=== PATIENT | female | born 1995 | race Caucasian/White ===

== ENCOUNTER 2016-11-03 13:51 | Emergency (ER) | payer SELFPAY ==
[~2016-11-03] VITALS: Ht 167.6 cm; Wt 73.0 kg
[2016-11-03 13:59] VITALS: BP 132/67
[2016-11-03] MEDS ORDERED: DEXAMETHASONE 4 MG/ML, 5ML ONE (14:17)
[2016-11-03] MEDS ORDERED: DEXAMETHASONE 4 MG/ML, 1ML PO ONE (14:30)
== END 2016-11-03 14:33 | disposition home or self-care (01) ==
LOC: ED 14:31
DX: J02.9 Acute pharyngitis, unspecified (principal)
CPT/HCPCS: 99283

== ENCOUNTER 2017-10-13 19:22 | Emergency (ER) | payer SELFPAY ==
[~2017-10-13] VITALS: Ht 167.6 cm; Wt 71.1 kg
[2017-10-13 19:23] VITALS: BP 115/74
== END 2017-10-13 20:35 | disposition home or self-care (01) ==
LOC: ED 19:40
DX: L01.01 Non-bullous impetigo (principal); L02.416 Cutaneous abscess of left lower limb; L02.415 Cutaneous abscess of right lower limb; L02.414 Cutaneous abscess of left upper limb; L02.413 Cutaneous abscess of right upper limb
CPT/HCPCS: 99283

== ENCOUNTER 2018-05-18 04:44 | Emergency (ER) | payer SELFPAY ==
[~2018-05-18] VITALS: Ht 167.6 cm; Wt 76.7 kg
[2018-05-18] MEDS ORDERED: KETOROLAC 30 MG/1 ML IM ONE (05:30)
[2018-05-18] MEDS ORDERED: DEXAMETHASONE 4 MG/ML, 1ML PO ONE (05:30)
[2018-05-18] MEDS ORDERED: DEXAMETHASONE 4 MG/ML, 1ML ONE (05:36)
[2018-05-18] MEDS ORDERED: KETOROLAC 30 MG/1 ML ONE (05:36)
--- NOTE | 2018-05-18 05:58 | NUR ---
pt medicated and has no other needs at this time. pt waiting for strep results. call light in reach
[2018-05-18 06:05] VITALS: BP 121/74
--- NOTE | 2018-05-18 06:29 | NUR ---
Patient given discharge instructions and they have confirmed that they understand the instructions. Patient ambulatory with steady gait.
== END 2018-05-18 06:31 | disposition home or self-care (01) ==
LOC: ED 06:25
DX: J02.8 Acute pharyngitis due to other specified organisms (principal); B97.89 Other viral agents as the cause of diseases classified elsewhere
CPT/HCPCS: 87081; 87147; 87880; 96372; 99283; J1100; J1885

== ENCOUNTER 2020-10-28 08:43 | Emergency (ER) | payer SELFPAY ==
[~2020-10-28] VITALS: Ht 172.7 cm; Wt 86.2 kg
[2020-10-28] MEDS ORDERED: HYDROcodone/APAP 5/325 TABLET PO ONE (09:30)
[2020-10-28] MEDS ORDERED: HYDROcodone/APAP 5/325 TABLET ONE (09:37)
[2020-10-28 10:02] VITALS: BP 129/79
== END 2020-10-28 10:04 | disposition home or self-care (01) ==
LOC: ED 09:19
DX: K02.9 Dental caries, unspecified (principal)
CPT/HCPCS: 99283